=== PATIENT | female | born 1940 | race Caucasian/White ===

== ENCOUNTER 2024-12-29 21:16 | Emergency (ER) | payer MEDICARE, BC, SELFPAY ==
[2024-12-29 21:21] VITALS: BP 194/89
[2024-12-29 21:51] LABS: Hematocrit 42.0 % (37.0-47.0); Hemoglobin 14.1 g/dL (12.0-16.0); Mean Corp Hgb Conc. 33.6 g/dL (33.0-37.0); Mean Corpuscular Volume 91.1 fL (81.0-99.0); Nucleated Red Blood Cells % 0 %; Platelet Count 247 10^3/uL (130-400); Red Cell Dist. Width 13.2 % (11.5-14.5)
[2024-12-29 22:08] LABS: ALT (SGPT) 24 U/L (0-35); AST (SGOT) 28 U/L (14-36); Albumin 4.3 g/dl (3.5-5.0); Alkaline Phosphatase 101 U/L (38-126); Blood Urea Nitrogen 24 mg/dl (7-17); Calcium 9.4 mg/dl (8.4-10.2); Carbon Dioxide 24 mmol/L (22-30); Chloride 112 mmol/L (98-107); Glucose 125 mg/dl (70-99); Potassium 5.4 mmol/L (3.5-5.1); Sodium 141 mmol/L (135-145); Total Protein 6.5 g/dl (6.3-8.2); eGFR 50.17
[2024-12-29 22:30] VITALS: BMI 23.9
[2024-12-29 22:33] VITALS: BP 188/78
[2024-12-29 23:00] VITALS: BP 183/64
[2024-12-30 00:06] VITALS: BP 192/87
[2024-12-30 00:51] VITALS: BP 183/68
[2024-12-30 01:00] VITALS: BP 181/60
--- NOTE | 2024-12-30 01:18 | ED.GENMED ---
History of Present Illness
General
Chief Complaint: Visual Problem
Source: patient and family
Time Seen by Provider: 12/29/24 22:30
History of Present Illness
History of Present Illness:
Note:
CHIEF COMPLAINT(S)
Painless vision loss in the right eye.
HISTORY OF PRESENT ILLNESS
The patient is an 84-year-old female with a significant past medical history of a vitreous detachment in the same eye. She presents with a sudden onset of painless vision loss in the right eye, which began around 3:30 PM today while driving. The
patient describes the vision in her right eye as partially black, stating she closed one eye and realized she could not see well out of her right eye. She denies experiencing any pain. The patient has never had issues with vision in the past except
for a vitreous detachment years ago, which was accompanied by flashes of light and floaters. No accompanying systemic symptoms such as headaches or neurological deficits were reported.
The patients left eye maintains normal function, and she was able to differentiate numbers during the visual field test. Conversely, the right eye showed vision loss in the nasal portion. She is not diabetic, and she has never experienced a stroke.
PAST MEDICAL AND SURGICAL HISTORY
History of vitreous detachment in the right eye with previous episodes of flashing lights and floaters.
PHYSICAL EXAM
General: Alert, awake, and oriented.
Eyes: Right eye shows loss of vision in nasal field; left eye is within normal limits for both temporal and nasal visual stern.
Neurological: No focal deficits, normal orientation, and able to follow visual commands with the left eye.
No respiratory distress
Skin normal
No abdominal distention
PROBLEM LIST
Acute:
- Sudden, painless vision loss in the right eye.
Chronic:
- History of vitreous detachment in the right eye.
PLAN
1. Perform an ocular ultrasound to assess for retinal detachment.
2. Conduct a CT scan to rule out intracranial pathologies, including stroke.
3. Coordinate an urgent appointment with [facility] for detailed [facility] examination the next morning.
4. Continue to monitor for any changes in vision or additional symptoms.
DIFFERENTIAL DIAGNOSIS
The Differential Diagnosis includes, in no particular order and is not limited to:
- Retinal detachment
- Central retinal artery occlusion
- Central retinal vein occlusion
- Stroke or cerebrovascular accident (CVA)
- Optic neuritis
- Acute angle-closure glaucoma
- Migraine associated with visual aura
- Temporal arteritis
- Brain tumor
- Ocular ischemic syndrome
Disposition:
SUMMARY OF ENCOUNTER
An 84-year-old female presented with vision loss in the right eye, specifically in the nasal portion of the visual field. The patient reported clear vision aside from the field cut. A bedside ultrasound demonstrated retinal detachment. An
ophthalmology consultation was obtained with recommendations for transfer for further evaluation and possible surgical intervention.
MANAGEMENT OF THE PATIENTS CARE WAS DISCUSSED WITH
The case was discussed with ophthalmology, who recommended transfer for evaluation and potential surgical repair.
PLAN
Transfer the patient to the [facility] for further evaluation and potential surgical repair of the retinal detachment.
INDEPENDENT REVIEW OF LABS AND INTERPRETATION OF TESTS
- My independent interpretation of the bedside ultrasound is consistent with retinal detachment. CT scan shows no intracranial hemorrhage by my evaluation. CBC normal. Chemistries do show a slight hyperkalemia at 5.4 but otherwise noncontributory
MEDICAL DECISION MAKING
- Number and Complexity of Problems Addressed: Chronic conditions affecting care, including a history of vitreous detachment in the right eye. Differential diagnosis includes retinal detachment, central retinal artery occlusion, central retinal vein
occlusion, stroke or cerebrovascular accident (CVA), optic neuritis, acute angle-closure glaucoma, migraine associated with visual aura, temporal arteritis, brain tumor, and ocular ischemic syndrome.
- Data:
- Category 1: Bedside ultrasound was conducted and independently interpreted.
- Category 3: Discussion of management with ophthalmology, recommending transfer for further evaluation and possible surgical repair.
- Risk: The patient has a high risk of complications due to the potential for worsening of the retinal detachment, which could lead to permanent vision loss. Consideration was given for transfer to a higher level of care for management.
DIAGNOSIS
- Retinal detachment, right eye (H33.005).
Phy Exam
Physical Exam
Physical Exam:
.
Course
Orders/Labs/Results
Orders:
Orders
12/29/24 21:40
CMP [Comprehensive Metabolic Panel] Urgent
Complete Blood Count/With Diff Urgent
12/29/24 22:41
CT Head W/o Iv Contrast Urgent
Comment:
Reason For Exam: vision loss
Abnormal Lab Results
12/29/24
21:40
Absolute Monos (auto) 0.7 H 10^3/uL
(0.1-0.6)
Monocytes % 10.6 H %
(1.7-9.3)
Potassium 5.4 H mmol/L
(3.5-5.1)
Chloride 112 H mmol/L
(98-107)
BUN 24 H mg/dl
(7-17)
Creatinine 1.1 H mg/dL
(0.6-1.0)
Glucose 125 H mg/dl
(70-99)
12/29/24 21:40
12/29/24 21:40
Vital Signs
Initial and Last Documented VS:
Initial Vital Signs
Temp Pulse Resp BP Pulse Ox
97.7 F 79 16 194/89 94
12/29/24 21:21 12/29/24 21:21 12/29/24 21:21 12/29/24 21:21 12/29/24 21:21
Last Documented Vital Signs
Temp Pulse Resp BP Pulse Ox
97.7 F 76 18 186/67 97
12/29/24 21:21 12/30/24 01:00 12/30/24 02:00 12/30/24 02:01 12/30/24 02:01
*Pulse Oximetry
SaO2: 97
Oxygen Mode of Delivery: Room air
Patient hypoxic: no
*Critical Care Note
Total Time (30-74mins, 75-104mins- exclusive of procedures): Not Applicable
ED Attending Note
-
Portions of this chart may have been created with voice recognition software.� Occasional wrong word or��sound alike� substitutions may have occurred due to the inherent limitations of voice recognition software.
Discharge Plan
Departure
Patient Disposition: Acute Care Hospital
Date of Disposition: 12/30/24
Time of Disposition: 01:20
Discharge Problem:
Acute detachment of retina
Prescriptions:
No Action
metformin 500 mg Tablet
500 mg PO DAILY
gabapentin 600 mg Tablet
600 mg PO HS
atorvastatin 20 mg Tablet
20 mg PO HS
losartan 25 mg Tablet
25 mg PO DAILY
budesonide-formoterol [Symbicort] 160-4.5 mcg/actuation Hfa Aerosol Inhaler
1 inh INHALATION ONCE
Referrals:
UNKNOWN - PT DOES,NOT KNOW [Family Provider]
Hospital Transfer
Other hospital: [facility]
I certify that the patient requires transfer: Yes
Discussed case with accepting physician: Randy
Reason for transfer: specialties available
Interventions
Interventions:
*Risk Screen - Suicide Last Done: 12/29/24 21:21
*General Assessment Last Done: 12/29/24 21:21
*Neglect/Abuse Screening Last Done: 12/29/24 21:21
*ED- Fall Risk Assessment Last Done: 12/29/24 23:27
*ED COVID-19 Vaccine History Last Done: 12/29/24 23:27
*Nursing Disposition Last Done: 12/30/24 02:12
ED- Neurological Assessment Last Done: 12/29/24 23:28
ED-EENT Assessment Last Done: 12/30/24 01:05
ED Swallowing Screen Last Done: 12/29/24 22:35
Discharge Date and Time
Discharge Date/Time: 12/30/24 02:14
Print Language: PRYDEINIG
[2024-12-30 02:01] VITALS: BP 186/67
== END 2024-12-30 02:14 | disposition short-term general hospital (02) ==
LOC: EMR 21:16
PROVIDERS: Emergency Medicine; EMERGENCY PHYSICIAN Emergency Medicine
DX: H33.21 Serous retinal detachment, right eye (principal)
CPT/HCPCS: 99284; 70450; 80053; 85025